=== PATIENT | male | born 1975 | race Caucasian/White ===

== ENCOUNTER → 2019-03-22 05:30 | Outpatient (CLI) | payer BC, OTHER, SELFPAY ==
--- NOTE | 2019-03-22 | DI.MRI.S_ITS ---
PROCEDURE: MR SHOULDER RT WO CON INDICATIONS: SPRAIN OF RT ROTATOR CUFF CAPSULE TECHNIQUE: Noncontrast oblique coronal T2 fast spin echo with fat saturation, oblique sagittal T1 spin echo and T2 fast spin echo with fat saturation, axial T1 spin echo and T2 fast spin echo with fat saturation through the shoulder. COMPARISON: None FINDINGS: Image quality: Excellent. Rotator cuff: Supraspinatus and infraspinatus tendinopathy and thickening. There is low-grade bursal and articular surface fraying of the infraspinatus tendon. Partial thickness bursal sided tear of the supraspinatus tendon measuring approximately 50% of tendon thickness. Teres minor appears intact. Subscapularis tendinopathy with low-grade articular surface fraying. No atrophy of the rotator cuff muscles however diffuse fatty infiltration of the infraspinatus is noted. Bones and bursae: No bone marrow contusions or fractures. Lateral downsloping appearance of the acromion is noted. Moderate acromioclavicular joint degeneration. The acromion demonstrates conventional anatomy, without an os acromiale. Mild to moderate subacromial/subdeltoid bursitis. Capsule and soft tissues: Circumferential labral tear is noted involving all segments. There is 3 mm para labral cyst adjacent to the posterior segment on image 12 series 6. Posterior subluxation of the humeral head relative to the glenoid is noted suggestive of microinstability. The long head of the biceps tendon demonstrates normal location and morphology. The rotator interval appears normal, without fibrosis. The coracohumeral ligament is normal in thickness. IMPRESSION: Supraspinatus tendinopathy with partial thickness bursal sided tear, approximately 50% of tendon thickness. Infraspinatus tendinopathy with low-grade bursal and articular surface fraying. Subscapularis tendinopathy with low-grade articular surface fraying. Lateral downsloping appearance of the acromion. Moderate subacromial/subdeltoid bursitis. Circumferential labral tear, with associated 3 mm paralabral cyst adjacent to the posterior segment. Additionally, posterior subluxed appearance of the humeral head relative to the glenoid suggest microinstability. Dictated by: Mohinder Hein M.D. on 03/22/2019 at 8:50 Approved by: Mohinder Hein M.D. on 03/22/2019 at 8:58
== END ==
PROVIDERS: PCP Family Medicine; Visit Provider Family Medicine
DX: S43.421A Sprain of right rotator cuff capsule, initial encounter (principal); S43.491A Other sprain of right shoulder joint, initial encounter; S46.011A Strain of muscle(s) and tendon(s) of the rotator cuff of right shoulder, initial encounter; M75.51 Bursitis of right shoulder
CPT/HCPCS: 73221

== ENCOUNTER → 2019-06-18 12:25 | Outpatient (CLI) | payer BC, OTHER, SELFPAY ==
--- NOTE | 2019-06-18 | DI.MRI.S_ITS ---
PROCEDURE: MR LUMBAR SPINE WO CON INDICATIONS: RADICULOPATHY TECHNIQUE: Noncontrast sagittal T1 spin echo and T2 fast echo, sagittal STIR, axial T1 and T2 fast spin echo through the lumbar spine. In cases with scoliosis, additional coronal T2 fast spin echo may be performed. COMPARISON: [facility], CT, ABDOMEN/PELVIS WITH CONTRAST, 03/25/2013, 7:51. FINDINGS: Image quality: Excellent. Alignment and Curvature: 5 lumbar-type vertebral bodies are present by CT. There is mild grade 1 retrolisthesis of L5 on S1. Bone Marrow: Marrow is of normal overall signal. No acute vertebral body compression fractures. Mild reactive signal within the endplates adjacent to the L5-S1 intervertebral disc. Spinal Cord: Conus medullaris terminates at the L1-L2 disc space level. Visualized cord demonstrates normal signal and size. Paraspinous Soft Tissues: No paravertebral masses. L1-L2: Mild facet hypertrophy. No significant canal, nor foraminal stenosis. L2-L3: Normal appearance. L3-L4: Normal appearance. L4-L5: Normal appearance. L5-S1: Moderate disc height loss and desiccation. Moderate diffuse disc bulge with superimposed broad based right far lateral protrusion. Mild facet hypertrophy bilaterally. Mild canal stenosis. Moderate left and moderate to severe right foraminal stenosis. Right L5 nerve root compression. IMPRESSION: 1. Disc and facet disease at L5-S1, causing moderate to severe right-sided foraminal stenosis with right L5 nerve root compression. Recommend correlation with clinical symptoms to ascertain relevance of this finding. Dictated by: Homero Medel M.D. on 06/18/2019 at 16:54 Approved by: Homero Medel M.D. on 06/18/2019 at 16:57
--- NOTE | 2019-06-18 | DI.MRI.S_ITS ---
PROCEDURE: MR THORACIC SPINE WO CON INDICATIONS: RADICULOPATHY TECHNIQUE: Noncontrast sagittal T1 spine echo and T2 fast spin echo, sagittal STIR, axial T1 and T2 fast spin echo through the thoracic spine. COMPARISON: None. FINDINGS: Image quality: Excellent. Alignment and Curvature: There is mild diffuse thoracic kyphosis in otherwise normal bony alignment. Bone Marrow: Marrow is of normal overall signal. No acute vertebral body compression fractures. Spinal Cord: Visualized spinal cord is normal in size and signal. Paraspinous Soft Tissues: No paravertebral masses. Disc space levels: Multilevel disc desiccation is present. At T7-T8, there is mild diffuse disc bulge with a superimposed left paracentral protrusion, causing mild canal stenosis and mild cord flattening. At T8-T9, there is a right paracentral protrusion, causing mild canal stenosis and minimal right cord flattening. At T9-T10, there is a right paracentral protrusion, causing mild canal stenosis and mild right cord flattening. IMPRESSION: 1. Multilevel degenerative disc disease, superimposed on diffuse thoracic kyphosis. 2. Mild canal stenoses and mild cord flattening at T7-T8, T8-T9, and T9-T10 as described above. Dictated by: Homero Medel M.D. on 06/18/2019 at 16:51 Approved by: Homero Medel M.D. on 06/18/2019 at 16:54
--- NOTE | 2019-06-18 | DI.MRI.S_ITS ---
PROCEDURE: MR CERVICAL SPINE WO CON INDICATIONS: RADICULOPATHY TECHNIQUE: Noncontrast sagittal T1 spin echo and T2 fast spin echo, sagittal STIR, foraminal oblique sagittal T2 fast spin echo, and axial gradient echo or T2 fast spin echo through the cervical spine. COMPARISON: None. FINDINGS: Image quality: Excellent. Alignment and Curvature: There is normal bony alignment. Bone Marrow: Marrow demonstrates normal overall signal. Spinal Cord: Visualized spinal cord has normal size and signal. No cerebellar tonsillar herniation. Paraspinous Soft Tissues: No paravertebral masses. Prevertebral soft tissues are normal in thickness. C2-C3: Congenital canal stenosis. Mild disc desiccation. Mild diffuse disc bulge with superimposed broad-based left posterior lateral protrusion. Mild left facet and uncovertebral hypertrophy. Moderate canal stenosis. Minimal left anterior cord flattening. Severe left and no right foraminal stenosis. Left C3 nerve or compression. C3-C4: Congenital canal stenosis. Mild disc desiccation. Mild diffuse disc bulge with small superimposed left posterolateral broad-based protrusion. Mild left facet and uncovertebral hypertrophy. Moderate canal stenosis. Moderate to severe left foraminal stenosis possible left C4 nerve root compression. No right foraminal stenosis. C4-C5: Congenital canal stenosis. Mild disc height loss and desiccation. Mild diffuse disc bulge. Mild facet and uncovertebral hypertrophy bilaterally. Mild canal stenosis. Moderate right and no left foraminal stenosis. C5-C6: Congenital canal stenosis. Mild disc height loss and desiccation. Mild diffuse disc bulge. Mild facet and uncovertebral hypertrophy bilaterally. Moderate canal stenosis. Moderate left and mild right foraminal stenosis. C6-C7: Congenital canal stenosis. Mild disc height loss and desiccation. Mild diffuse disc bulge. Mild canal stenosis. Mild bilateral foraminal stenosis. C7-T1: Normal appearance. IMPRESSION: 1. Diffuse congenital canal stenosis, with superimposed disc and facet disease, as well as uncovertebral hypertrophy. 2. Multilevel canal stenoses, worst at C2-C3, with there is minimal left anterior cord flattening. 3. Multilevel foraminal stenoses, worst at C2-C3 at C3-C4 where there is associated intraforaminal nerve root compression as described above. Recommend correlation with clinical symptoms to ascertain relevance of these findings. Dictated by: Homero Medel M.D. on 06/18/2019 at 16:46 Approved by: Homero Medel M.D. on 06/18/2019 at 16:50
== END ==
PROVIDERS: PCP Family Medicine; Visit Provider Family Medicine
DX: M54.10 Radiculopathy, site unspecified (principal); M48.02 Spinal stenosis, cervical region; M51.34 Other intervertebral disc degeneration, thoracic region; M48.04 Spinal stenosis, thoracic region; M40.204 Unspecified kyphosis, thoracic region; M48.07 Spinal stenosis, lumbosacral region; M51.27 Other intervertebral disc displacement, lumbosacral region
CPT/HCPCS: 72141; 72146; 72148

== ENCOUNTER → 2020-08-14 06:58 | Outpatient (CLI) | payer BC, OTHER, SELFPAY ==
--- NOTE | 2020-08-14 | DI.MRI.S_ITS ---
PROCEDURE: MR SHOULDER LT W CON INDICATIONS: Left shoulder internal derangement TECHNIQUE: After the administration of 12 mL of dilute intra-articular Gadolinium contrast, oblique coronal T1 and T2 spin echo with fat saturation, oblique sagittal T1 spin echo with and without fat saturation, oblique sagittal T2 fast spin echo with fat saturation, axial T1 spin echo with fat saturation through the shoulder. COMPARISON: [facility], CR, SCAPULA, 10/13/2016, 18:44. [facility], RF, FL SHOULDER INJECTION MR/CT LT, 08/14/2020, 8:26. FINDINGS: Image quality: Excellent. Rotator cuff: There is partial-thickness tear of the supraspinatus tendon involving the bursal surfaces, as well as the footprint with associated tendon thickening consistent with tendinitis. No contrast extravasation in the subacromial/subdeltoid bursa. There is partial-thickness tear of the infraspinatus involving both articular and bursal surfaces with associated tendinitis. The subscapularis tendon appear intact with mild tendon thickening consistent with mild tendinopathy. No rotator cuff muscle atrophy on sagittal images. Bones and bursae: No bone marrow contusions or fractures. There is moderate acromioclavicular joint degeneration. The acromion demonstrates conventional anatomy, without an os acromiale. Capsule and soft tissues: There is SLAP tear of the superior labrum. There are paralabral cysts adjacent to the posterior superior labrum. The glenohumeral ligaments appear intact. The long head of the biceps tendon demonstrates normal location and morphology. The rotator interval appears normal, without fibrosis. The coracohumeral ligament is of normal thickness. No intra-articular bodies. IMPRESSION: 1. Partial thickness tear of the supraspinatus and infraspinatus tendons. No supraspinatus or infraspinatus muscle atrophy. 2. Mild subscapularis tendinitis. 3. SLAP lesion of the superior labrum with associated paralabral cysts adjacent to the posterior superior labrum. 4. Moderate acromioclavicular joint degeneration. Dictated by: Roopa Coelho M.D. on 08/14/2020 at 10:02 Approved by: Roopa Coelho M.D. on 08/14/2020 at 18:32
--- NOTE | 2020-08-14 | DI.RAD.S_ITS ---
PROCEDURE: FL SHOULDER INJECTION MR/CT LT INDICATIONS: Left shoulder internal derangement TECHNIQUE: The indications, alternatives, benefits, risks, and complications of the procedure were explained to the patient. Written informed consent was obtained and placed in the chart. The shoulder was examined fluoroscopically and a site for needle placement chosen for entry into the glenohumeral joint from an anterior approach. The skin was prepped and draped in a sterile fashion, and 1% lidocaine infiltrated from skin down to joint capsule. A spinal needle was inserted into the glenohumeral joint, and a small amount of iodinated contrast media injected to confirm intra-articular placement of the needle tip. This was followed by approximately 12 mL dilute solution of a gadolinium containing MR contrast agent. The needle was removed and a dressing was applied. The patient was given postprocedural instructions and sent to the MR suite for MR imaging. FINDINGS: A single fluoroscopic spot image demonstrates intra-articular location of injected iodinated contrast. IMPRESSION: Successful fluoroscopically guided administration of dilute Gadolinium solution into the shoulder joint for MR arthrogram. Dictated by: Nikolai Flannery M.D. on 08/14/2020 at 8:52 Approved by: Nikolai Flannery M.D. on 08/14/2020 at 8:53
== END ==
PROVIDERS: PCP Family Medicine; Referring Provider Family Medicine; Visit Provider Family Medicine
DX: M75.112 Incomplete rotator cuff tear or rupture of left shoulder, not specified as traumatic (principal); M19.012 Primary osteoarthritis, left shoulder; S43.432A Superior glenoid labrum lesion of left shoulder, initial encounter; M75.92 Shoulder lesion, unspecified, left shoulder
CPT/HCPCS: 23350; 73222; 77002

== ENCOUNTER → 2021-02-11 08:42 | Outpatient (CLI) | payer BC, OTHER, SELFPAY ==
--- NOTE | 2021-02-11 | DI.MRI.S_ITS ---
PROCEDURE: MR SHOULDER RT WO CON INDICATIONS: RIGHT SHOULDER PAIN TECHNIQUE: Noncontrast oblique coronal T2 fast spin echo with fat saturation, oblique sagittal T1 spin echo and T2 fast spin echo with fat saturation, axial T1 spin echo and T2 fast spin echo with fat saturation through the shoulder. COMPARISON: [facility], MR, MR SHOULDER LT W CON, 08/14/2020, 8:38. [facility], MR, MR LUMBAR SPINE WO CON, 06/18/2019, 13:14. [facility], MR, MR SHOULDER RT WO CON, 03/22/2019, 6:26. FINDINGS: Image quality: Excellent. Rotator cuff: There is high-grade partial thickness tear of the supraspinatus involving the bursal surface. There is moderate infraspinatus and subscapularis tendinosis with mild tendon thickening and irregularity. Sagittal images demonstrate no rotator cuff muscle atrophy. Bones and bursae: No bone marrow contusions or fractures. There is prominent red marrow in humeral shaft. There is severe acromioclavicular joint degeneration. The acromion demonstrates conventional anatomy, without an os acromiale. Small amount of subacromial-subdeltoid and subcoracoid bursal fluid is present consistent with mild bursitis. Capsule and soft tissues: There is degenerative labral fraying. Small paralabral cysts are again noted adjacent to the posterior superior labrum. The long head of the biceps tendon demonstrates normal location and morphology. The rotator interval appears normal, without fibrosis. The coracohumeral ligament is normal in thickness. IMPRESSION: 1. High-grade partial thickness tear of the supraspinatus tendon. 2. Moderate infraspinatus and subscapularis tendinitis. 3. Severe acromioclavicular joint degeneration. 4. Degenerative labral fraying with small paralabral cysts in the posterior superior labrum. 5. Mild subacromial-subdeltoid and subcoracoid bursitis. 6. Red marrow conversion in humeral shaft. This finding could be related to hematologic disorder. Recommend clinical correlation. Dictated by: Roopa Coelho M.D. on 02/11/2021 at 13:45 Approved by: Roopa Coelho M.D. on 02/11/2021 at 17:32
== END ==
PROVIDERS: PCP Family Medicine; Referring Provider Family Medicine; Visit Provider Orthopaedic Surgery Sports Medicine
DX: M75.101 Unspecified rotator cuff tear or rupture of right shoulder, not specified as traumatic (principal); M75.91 Shoulder lesion, unspecified, right shoulder; M75.51 Bursitis of right shoulder
CPT/HCPCS: 73221